=== PATIENT | female | born 1955 | race Caucasian/White ===

== ENCOUNTER 2018-05-02 11:12 | Day surgery (SDC) | payer OTHER ==
[2018-05-02] MEDS ORDERED: OXYCODONE/ACETAMINOPHEN (5/325) TAB PO ×2 (13:30)
[2018-05-02] MEDS ORDERED: ONDANSETRON 4 MG INJ IV (13:30)
[2018-05-02] MEDS ORDERED: MEPERIDINE 25 MG INJ IV (13:30)
[2018-05-02] MEDS ORDERED: DIPHENHYDRAMINE 50 MG INJ IV (13:30)
[2018-05-02] MEDS ORDERED: HYDROmorphONE 1 MG/5 ML IV SYRINGE IV ×2 (13:30)
[2018-05-02] MEDS ORDERED: ONDANSETRON 4 MG INJ (14:27)
[2018-05-02] MEDS ORDERED: MIDAZOLAM 1 MG/ML 2 ML INJ (14:27)
[2018-05-02] MEDS ORDERED: CEFAZOLIN 1 GM INJ (14:27)
[2018-05-02] MEDS ORDERED: PROPOFOL 20 ML (14:27)
[2018-05-02] MEDS ORDERED: FENTAnyl 50 MCG/ML VIAL (14:27)
[2018-05-02] MEDS ORDERED: METOCLOPRAMIDE 10 MG INJ (14:27)
[2018-05-02] MEDS: HYDROmorphONE 1 MG/5 ML IV SYRINGE IV (15:47)
[2018-05-02] MEDS ORDERED: morphine 2 MG INJ IV (16:00)
[2018-05-02] MEDS ORDERED: HYDROCODONE/APAP (5/325) TAB PO (16:00)
== END 2018-05-02 17:14 | disposition home or self-care (01) ==
LOC: SDS 11:12
DX: G56.01 Carpal tunnel syndrome, right upper limb (principal); E11.9 Type 2 diabetes mellitus without complications; E78.5 Hyperlipidemia, unspecified; I10 Essential (primary) hypertension; E03.9 Hypothyroidism, unspecified
CPT/HCPCS: 64721; 71045; 82962; 93005